=== PATIENT | male | born 1960 | race Caucasian/White ===

== ENCOUNTER 2021-02-22 08:05 | Outpatient (CLI) | payer OTHER, SELFPAY | END 2021-02-22 08:06 | PROVIDERS: PCP Family Medicine | DX: Z23 Encounter for immunization (principal) | CPT/HCPCS: 0001A; 91300 ==

== ENCOUNTER 2021-03-15 08:01 | Outpatient (CLI) | payer OTHER, SELFPAY | END 2021-03-15 08:02 | disposition home or self-care (01) | LOC: ANHCOVIDVC 08:01 | PROVIDERS: PCP Family Medicine | DX: Z23 Encounter for immunization (principal) | CPT/HCPCS: 0002A; 91300 ==

== ENCOUNTER 2023-09-05 18:30 | Emergency (ER) | payer OTHER, SELFPAY ==
[2023-09-05 18:38] VITALS: BP 175/97; PULSE 66; RESP 18; TEMP 36.7; O2SAT 98
--- NOTE | 2023-09-05 18:44 | ED.MALEGU ---
HPI - Male Genitourinary General Chief complaint: Urogenital-Male Stated complaint: Male Urogenital Time Seen by Provider: 09/05/23 18:44 Source: patient, RN notes reviewed and old records reviewed Mode of arrival: ambulatory Limitations: no limitations History of Present Illness HPI Narrative: 63 year old male presents to express care accompanied by with complaints of urinary burning, urgency, frequency of urination and also some minimal lower abdominal pain since yesterday. Patient reports that he has taken Tylenol for his discomfort. Patient has had 2 previous procedures to removal scar tissue from urinary tract and did see a urologist for evaluation of rnal cysts in the past but has not followed with him since early 2018. Patient no longer states that he takes any blood pressure medication since he retired does cardio workout a fes times weekly, blood pressure today 175/97. Complaint: dysuria Onset (ago): day(s) (since yesterday, day 2 of symptoms.) Duration: constant Location: abdomen (lower abdomen) Severity scale (1-10): 2 Associated symptoms: Reports dysuria and other (urgency frequency, minimal lower abdominal pain.) Related Data Allergies Allergy/AdvReac Type Severity Reaction Status Date / Time No Known Allergies Allergy Verified 09/05/23 18:49 Review of Systems Review of Systems: CONSTITUTIONAL: Denies fever, chills, or sweats. CARDIOVASCULAR: Denies chest pain, palpitations, or edema. RESPIRATORY: Denies cough or dyspnea. GASTROINTESTINAL: mild suprapubic abdominal pain,no nausea, vomiting, or diarrhea. GENITOURINARY: Reports dysuria, frequency, urgency. Denies flank pain or hematuria. SKIN: Denies rash or itching. MUSCULOSKELETAL: Denies back pain or myalgia. Denies CVA tenderness NEUROLOGIC: Denies headache All systems reviewed & are unremarkable except as noted in HPI and below PMFSH Past Medical History Medical History Hypertension Renal cyst Surgical History Surgical History History of urinary tract surgery X2 to remove scar tissue. Social History Social History Smoking status: Never smoker Alcohol intake: current Substance use type: does not use Living arrangements: with family Occupation/Education: retired Gender identity (if verbalized by the patient): Male Comments At time of signature, agree with nursing past medical, surgical, social and family history. There is no relevant family history pertinent to the presenting complaint Exam Narrative: GENERAL: Well-appearing, well-nourished, and in no acute distress. HEAD: Normocephalic, atraumatic. NECK: Supple. no lymphadenopathy CHEST: Clear to auscultation. No respiratory distress.SAO2 98% on room air HEART: Regular rate and rhythm. No murmur heard. Normal peripheral pulses. ABDOMEN: Soft, mild suprapubic tenderness, nondistended, normal active bowel sounds. No CVA tenderness, Positive for burning with urination with urgency and frequency denies any visible blood in urine. EXTREMITIES: Normal range of motion. No edema. SKIN: Warm, dry, no rash. NEURO: No focal deficits. Alert and oriented x3. Course Course Emergency Course: Patient is aware of diagnosis, understands and agrees to treatment plan.? Anticipatory guidance given.? Patient agrees to follow-up as directed and is aware of reasons to seek care at the emergency department. Portions of this record may have been created with voice recognition software Level of Care: Express Care Visit Vital Signs Vital signs: Vital Signs Oxygen Delivery Room Air 09/05/23 18:37 Temperature 36.7 C 09/05/23 18:38 Pulse Rate 66 09/05/23 18:38 Respiratory Rate 18 09/05/23 18:38 Blood Pressure 175/97 H 09/05/23 18:38 Pulse Oximetry 98 09/05/23 18:38 Oxygen Delivery Room Air 09/05/23
== END 2023-09-05 19:08 | disposition home or self-care (01) ==
PROVIDERS: Emergency Provider Registered Nurse; PCP Family Medicine
DX: N39.0 Urinary tract infection, site not specified (principal); B95.1 Streptococcus, group B, as the cause of diseases classified elsewhere; I10 Essential (primary) hypertension
CPT/HCPCS: 81003; 87077; 87086; 87088; 99213; G0463

== ENCOUNTER 2023-09-25 07:02 | Outpatient (CLI) | payer OTHER, SELFPAY ==
--- NOTE | ~2023-09-25 | CT_ITS ---
CT of the Abdomen: Indication: Renal mass Technique: 2.5 mm axial scans were obtained through the abdomen prior to and following intravenous a dministration of 100 cc of Omnipaque 350. Dose reduction technique was used on this scan by utilizing automated exposure control and iterative reconstruction technique. The dose-length product (DLP) was 556.11 mGy-cm. COMPARISON: Prior MRI dated 01/05/2019 Findings: Scans through the lung bases are unremarkable. The liver, spleen, pancreas, gallbladder, and adrenal glands are within normal limits. Bilateral kaley gn renal cysts are present. No suspicious renal mass identified. No evidence of aortic aneurysm. No lymphadenopathy. Visualized bowel loops are unremarkable. No ascites. Impression: Bilateral benign renal cysts. No suspicious abnormality seen. Reviewed, dictated and finalized at location . SS LIAISON Impression: Bilateral benign renal cysts. No suspicious abnormality seen.
[2023-09-25 07:31] LABS: Estimated Glomerular Filt Rate > 60
== END 2023-09-25 07:03 | disposition home or self-care (01) ==
PROVIDERS: PCP Family Medicine; Visit Provider Urology
DX: N28.89 Other specified disorders of kidney and ureter (principal); N28.1 Cyst of kidney, acquired
CPT/HCPCS: 74170; Q9967

== ENCOUNTER 2023-11-23 15:17 | Emergency (ER) | payer OTHER, SELFPAY ==
[2023-11-23] VITALS (10 sets, daily range): BP systolic 130–142; BP diastolic 76–89; PULSE 88–120; RESP 10–22; TEMP 37.7–38.7; O2SAT 95–99
--- NOTE | ~2023-11-23 | CT_ITS ---
EXAMINATION: CT abdomen pelvis w con DATE: 11/23/2023 20:43 INDICATION: RLQ tenderness, febrile TECHNIQUE: Computed tomography (CT) of the abdomen and pelvis was performed with 100 mL Omnipaque-350 intravenous contrast. Automated exposure control and iterative reconstruction technique were employe d. The dose-length product was 556.43 mGy-cm. COMPARISON: CT abdomen 09/25/2023; MR abdomen 01/05/2019; CT abdomen pelvis 08/01/2018. FINDINGS: Lower thorax: Dependent scar/atelectasis. Liver: Multiple subcentimeter hypodensities that likely represent cysts or hemangiomas. Mildly enlarg ed. Biliary/Gallbladder: Gallbladder is normal. No bile duct dilation. Pancreas: No mass or duct dilation. Spleen: Mildly enlarged. Adrenals:No mass. Kidneys: Urothelial enhancement bilaterally. Indeterminate density right mid and lower pole lesions p reviously determined to be hemorrhagic/proteinaceous cysts. Multiple left kidney cysts. GI tract: No small or large bowel dilation. Normal appendix. Diverticulosis without diverticulitis. Mesentery/Peritoneum: No ascites, mass, or free air. Retroperitoneum: No mass. Pelvis: Marked bladder wall thickening. Stranding in the pelvic fat at the inferior bladder and surro unding the seminal vesicles. Soft Tissues: Soft tissues and body wall unremarkable. Bones: No acute osseous finding. IMPRESSION: Mild hepatosplenomegaly. Likely cystitis, with ascending infection/pyelitis. Possible seminal vesiculitis. Reviewed, dictated and finalized at location K. COPER IMPRESSION: Mild hepatosplenomegaly. Likely cystitis, with ascending infection/pyelitis. Possible seminal vesiculiti s.
--- NOTE | ~2023-11-23 | XR_ITS ---
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 RESULT: Lines, tubes, and devices: None. Lungs and pleura: Clear. Cardiomediastinal silhouette: Stable. Other: No acute osseous or upper abdominal finding. IMPRESSION: No acute cardiopulmonary process. Reviewed, dictated and finalized at location K. K SAFETY INSPECTOR
--- NOTE | 2023-11-23 18:38 | ED.FEVER ---
HPI - Fever General Chief Complaint: Fever <CAMRYN Iyer Last Filed: 11/23/23 18:48> Stated Complaint: fever <CAMRYN Iyer Last Filed: 11/23/23 18:48> Time Seen by Provider: 11/23/23 18:38 <CAMRYN Iyer Last Filed: 11/23/23 18:48> Focused HPI: 63 y/o M reports for evaluation for intermittent fevers x3 days. Pt states 3 days ago, he began shivering, took his temperature and it was 102.9. Pt reports a headache and loose stools. On 11/13 he had urethral for a urethral stricture. He had a catheter placed post op and had it removed on 11/19 without complications. His urologist is Dr. Beasley who was contacted by the patient who did not feel patient's symptoms were related to recent surgery. Pt has been taking Tylenol with improvement. Denies sore throat, nasal congestion, cough, chest pain, shortness of breath, abdominal pain, dysuria, hematuria, urinary frequency or urgency, nuchal rigidity , rashes , hematochezia, melena. GENERAL: Well-appearing, well-nourished, and in no acute distress. HEAD: Normocephalic, atraumatic. CHEST: Clear to auscultation. ?No respiratory distress. HEART: Regular rate and rhythm.? NEURO: ?Alert and oriented x3. Patient screened in triage and initial orders placed.? ?Additional care and disposition to be based upon?diagnostic testing and treatment. <CAMRYN Iyer Last Filed: 11/23/23 18:48> Source: patient <CAMRYN Pino Last Filed: 11/24/23 02:50> Mode of arrival: ambulatory <CAMRYN Pino Last Filed: 11/24/23 02:50> Limitations: no limitations <CAMRYN Pino Last Filed: 11/24/23 02:50> History of Present Illness HPI Narrative: This is a 63 year old male who presents to the ED with chief complaint of fever for the past several days. Reports feeling generally malaised and has some loose stools. Denies significant diarrhea. He also reporting some nausea today but no vomiting. He has recent urethral balloon procedure done a couple weeks ago by his urologist Dr. Beasley, but they did not feel this fever was related to the procedure. Patient denies any penile or testicular pain or swelling. Denies hematuria, dysuria, abdominal pains, chest pain, shortness of breath, cough, sore throat. Endorses mild headache but no neck pain or stiffness. Having trouble keeping the fever down with Tylenol. <Angelito Ferguson PA-C - Last Filed: 11/24/23 02:50> Related Data Allergies/Adverse Reactions: Allergies Allergy/AdvReac Type Severity Reaction Status Date / Time No Known Allergies Allergy Verified 09/05/23 18:49 <Kendy Burks PA-C - Last Filed: 11/23/23 18:48> Review of Systems Review of Systems: All systems as dictated in HPI <CAMRYN Pino Last Filed: 11/24/23 02:50> PMFSH Past Medical History Medical History: Medical History Hypertension Renal cyst <Kendy Burks PA-C - Last Filed: 11/23/23 18:48> Surgical History Surgical History: Surgical History History of urinary tract surgery X2 to remove scar tissue. <Kendy Burks PA-C - Last Filed: 11/23/23 18:48> Social History Social History: Social History Smoking status: Never smoker Alcohol intake: current Substance use type: does not use Living arrangements: with family Occupation/Education: retired Gender identity (if verbalized by the patient): Male <Kendy Burks PA-C - Last Filed: 11/23/23 18:48> Exam Narrative: GENERAL: Well-appearing, well-nourished, and in no acute distress. HEAD: Normocephalic, atraumatic. EYES: PERRLA and EOMI. ENT: Nares clear, no rhinorrhea or epistaxis. Mucous membranes moist. Oropharynx without tonsillar hypertrophy exudate or other lesions. NECK: Supple. No adenopa
--- NOTE | 2023-11-23 18:47 | ECG_ITS ---
Measurements Intervals [place] Rate: 99 P: 55 MA: 135 QRS: 45 QRSD: 96 T: 41 QT: 308 QTc: 396 Interpretive Statements SINUS RHYTHM POSSIBLE LEFT ATRIAL ENLARGEMENT BORDERLINE ECG NO PREVIOUS ECG AVAILABLE FOR COMPARISON Electronically Signed On 11-23-2023 19:33:40 PHONE TRIAGE SPECIALIST by Yandel Hernandez D.O.
[2023-11-23 19:03] LABS: Basophils Absolute Auto 0.1 K/mm3 (0.0-0.1); Basophils Percent Auto 0.6 % (0.2-1.2); Eosinophils Percent Auto 0.1 % (0-4.4); Hematocrit 40.3 % (42.0-52.0); Hemoglobin 13.4 g/dL (14.0-18.0); Immature Granulocyte Absolute 0.05 K/mm3 (0.00-0.031); Immature Granulocyte Percent A 0.5 % (0-0.5); Lymphocytes Absolute Auto 0.71 K/mm3 (0.9-3.2); Lymphocytes Percent Auto 7.6 % (18.3-44.2); Mean Corpuscular HGB Conc 33.3 g/dl (32-36); Mean Corpuscular Hemoglobin 30.6 pg (26-34); Monocytes Absolute Auto 0.7 K/mm3 (0.1-0.6); Neutrophils Absolute Auto 7.9 K/mm3 (1.3-6.7); Neutrophils Percent Auto 84.2 % (45.5-73.1); Platelet Count Result 221 k/mm3 (150-375); Red Blood Count 4.38 M/mm3 (4.6-6.20); Red Cell Distribution Width 11.7 % (11.5-14.5); White Blood Count 9.4 K/mm3 (4.5-10.0)
[2023-11-23 19:12] LABS: Lactic Acid Reflex 1.3 mmol/L (0.7-2.0)
[2023-11-23 19:13] LABS: Alanine Aminotransferase 41 U/L (6-50); Alkaline Phosphatase 91 U/L (38-126); Anion Gap 7 mmol/L (8-16); Aspartate Amino Transferase 33 U/L (17-59); Bilirubin,Total 1.2 mg/dL (0.2-1.3); Blood Urea Nitrogen 11 mg/dL (9-20); Calcium 9.2 mg/dL (8.4-10.2); Carbon Dioxide 27 mmol/L (22-30); Chloride 102 mmol/L (98-107); Estimated CRCL calculation 101 ml/min; Estimated Glomerular Filt Rate > 60; Glucose 135 mg/dL (65-110); Potassium 4.3 mmol/L (3.4-5.0); Sodium 136 mmol/L (137-145)
[2023-11-23 19:40] LABS: Influenza A QL RT-PCR Negative (Negative); Influenza B QL RT-PCR Negative (Negative); RSV RNA, RT-PCR Negative (Negative); SARS-CoV-2 RNA PCR Negative (Negative)
--- NOTE | 2023-11-23 20:12 | PC.NURSE ---
PA-C verbal order d/c acetaminophen PO due to pt being NPO at this time. this rn used closed loop communication to confirm d/c of acetaminophen.
[2023-11-23 20:17] LABS: Appearance Urine Cloudy (Clear); Bacteria Urine 4+ /hpf; Bilirubin Urine Negative (Negative); Blood Urine Negative (Negative); Color Urine Dark Yellow (Yellow); Glucose Urine UA Negative (Negative); Ketones Urine Trace mg/dL (Negative); Leukocyte Esterase Ur 2+ LEU/UL (Negative); Nitrate Urine Positive (Negative); Non Pathogenic Casts 0-2; Protein Urine 1+ mg/dL (Negative); RBC Urine 0-2 /hpf (0-2); Specific Grav Ur 1.021 (1.001-1.035); Squamous Epithelial Cell Urine None seen /hpf (Few); WBC Urine >100 /hpf; pH Urine 7.5 (5.0-9.0)
[2023-11-23 20:21] LABS: Add Urine Microscopic? YES
[2023-11-23] MEDS: SODIUM CHLORIDE 0.9% IV 1,000 ML 999 ML IV CONT (20:29)
[2023-11-23] MEDS: KETOROLAC 15 MG/ML VIAL (*BKC) IV PUSH (20:30)
[2023-11-23 21:09] LABS: CRP 13.7 mg/dL (<1.0)
== END 2023-11-23 22:26 | disposition home or self-care (01) ==
PROVIDERS: Physician Assistant; Emergency Provider Physician Assistant; PCP Family Medicine
DX: N10 Acute pyelonephritis (principal); Z20.822 Contact with and (suspected) exposure to COVID-19; I10 Essential (primary) hypertension; R94.31 Abnormal electrocardiogram [ECG] [EKG]; R16.2 Hepatomegaly with splenomegaly, not elsewhere classified
CPT/HCPCS: 36415; 71046; 74177; 80053; 81001; 83605; 85025; 86140; 87040; 87077; 87086; 87186; 87637; 93005; 96361; 96365; 96375; 99284; J0696; J1885; J7030; Q9967

== ENCOUNTER 2024-03-16 09:00 | Outpatient (CLI) | payer OTHER, SELFPAY ==
[2024-03-16 13:21] LABS: Eosinophils Absolute Auto 0.1 K/mm3 (0-0.3); Eosinophils Percent Auto 1.9 % (0-4.4); Hematocrit 42.7 % (42.0-52.0); Hemoglobin 14.2 g/dL (14.0-18.0); Immature Granulocyte Absolute 0.02 K/mm3 (0.00-0.031); Immature Granulocyte Percent A 0.5 % (0-0.5); Lymphocytes Absolute Auto 1.48 K/mm3 (0.9-3.2); Lymphocytes Percent Auto 35.2 % (18.3-44.2); Mean Corpuscular HGB Conc 33.3 g/dl (32-36); Mean Corpuscular Hemoglobin 30.9 pg (26-34); Mean Corpuscular Volume 92.8 fl (80-100); Mean Platelet Volume 12.7 fl (7.4-10.4); Monocytes Absolute Auto 0.3 K/mm3 (0.1-0.6); Monocytes Percent Auto 6.9 % (2.6-8.5); Neutrophils Absolute Auto 2.3 K/mm3 (1.3-6.7); Neutrophils Percent Auto 54.5 % (45.5-73.1); Platelet Count Result 208 k/mm3 (150-375); Red Cell Distribution Width 12.3 % (11.5-14.5); White Blood Count 4.2 K/mm3 (4.5-10.0)
[2024-03-16 13:35] LABS: Alanine Aminotransferase 18 U/L (6-50); Albumin Level 4.3 g/dL (3.5-5.1); Alkaline Phosphatase 78 U/L (38-126); Anion Gap 5 mmol/L (4-12); Aspartate Amino Transferase 43 U/L (17-59); Bilirubin,Total 1.4 mg/dL (0.2-1.3); Blood Urea Nitrogen 17 mg/dL (9-20); Calcium 9.1 mg/dL (8.4-10.2); Carbon Dioxide 26 mmol/L (22-30); Chloride 107 mmol/L (98-107); Cholesterol 180 mg/dL (0-200); Estimated Glomerular Filt Rate > 60; Glucose 103 mg/dL (65-110); HDL Direct 50 mg/dL; Potassium 4.3 mmol/L (3.4-5.0); Sodium 138 mmol/L (137-145); Triglycerides 80 mg/dL (<150)
[2024-03-16 13:45] LABS: Vitamin D 25 Hydroxy 48.8 ng/mL
[2024-03-16 13:46] LABS: LDL Cholesterol Direct 102 mg/dL
[2024-03-16 14:05] LABS: Prostate Specific Antigen 2.2 ng/mL (< OR = 4.0)
[2024-03-20 12:08] LABS: Testosterone Free 43.1 pg/mL (35.0-155.0); Testosterone Total 454 ng/dL (250-1100)
== END 2024-03-16 09:01 | disposition home or self-care (01) ==
LOC: ANHGOSHLAB 09:02
PROVIDERS: PCP Family Medicine; Visit Provider Family Medicine
DX: Z12.5 Encounter for screening for malignant neoplasm of prostate (principal); I10 Essential (primary) hypertension; R68.82 Decreased libido; E55.9 Vitamin D deficiency, unspecified; Z13.220 Encounter for screening for lipoid disorders
CPT/HCPCS: 36415; 80053; 80061; 82306; 84153; 84402; 84403; 84443; 85025; G0103

== ENCOUNTER 2024-04-02 09:24 | Day surgery (SDC) | payer OTHER, SELFPAY ==
[2024-03-16 11:03] VITALS: BMI 25.7
[2024-03-24 12:46] VITALS: BMI 25.6
[2024-04-02 10:21] VITALS: BP 121/80; PULSE 60; RESP 18; TEMP 36.9; O2SAT 99; BMI 25.2
--- NOTE | 2024-04-02 10:32 | P.PNAN_ITS ---
Anes - Initial Pre Proc Eval Procedure: Operation Date: 04/02/24 11:00 Proposed Procedures p Screening Colonoscopy - Travis Diaz MD Date/Time: 04/02/24 10:32 Surgeon: Travis Diaz MD Pre Op Diagnosis: Neoplasm Screening Patient Data Age: 63 Gender: M Height: 1.91 m Weight: 91.6 kg Last Vital Signs Temp 36.9 C 04/02/24 10:21 Pulse 60 04/02/24 10:21 Resp 18 04/02/24 10:21 BP 121/80 04/02/24 10:21 Pulse Ox 99 04/02/24 10:21 O2 Del Method Room Air 04/02/24 10:21 Allergies Allergy/AdvReac Type Severity Reaction Status Date / Time No Known Allergies Allergy Verified 04/02/24 10:18 Home Medications Medication Instructions Recorded Confirmed Type cetirizine 10 mg capsule (Zyrtec) 10 mg PO DAILY 03/12/24 04/02/24 History cholecalciferol (vitamin D3) 25 25 mcg PO DAILY 03/12/24 04/02/24 History mcg (1,000 unit) capsule zsfurlze-cr-hqjje 300 mcg-K 60 1 tablet PO DAILY 03/12/24 04/02/24 History mcg-lycop 600 mcg-lutein 300 mcg tablet (Centrum Silver Ultra Men's) omega-3 fatty acids-vitamin E 1 cap PO DAILY 03/24/24 04/02/24 History 1,000 mg capsule Patient hx anesthesia problems: none Family hx anesthesia problems: none Results Review: All pre-operative results and documents have been reviewed as part of the pre- operative evaluation. [facility] Past Medical History Medical History Decreased libido Hypertension Renal cyst Surgical History Surgical History History of urinary tract surgery X2 to remove scar tissue. Social History Social History Smoking status: Former smoker Smokeless tobacco user: chewing tobacco Alcohol intake: current Drinks per week: 1 Substance use type: does not use Do You Feel Safe in your Home?: Yes Lack of Transportation: No Lack of Food: Never True Current Housing: I Have Housing Concerned About Future Housing: No Difficulty Paying Gas/Electric Bills: No Difficulty Paying for Meds: No Currently Unemployed: No Difficulty w/ Childcare or Family Care: No Living arrangements: with family Occupation/Education: retired Gender identity (if verbalized by the patient): Male Spiritual care concerns: No Anes - Eval Final PreProcedure Day of Procedure 04/02/24 10:32 Patient weight: normal Heart: regular rate and rhythm Lungs: clear to auscultation Airway: Mallampati scale class II Neurological: alert and oriented Last oral intake: >/= 8 hours ASA classification: II Emergent: no Anesthetic plan: proceed Anesthesia type and monitoring: general GIVS and standard monitoring Results Review: All pre-operative results and documents have been reviewed as part of the pre- operative evaluation. Informed Consent: The patient's anesthetic plan and its attendant risks and benefits were discus sed with the patient/family/POA. Questions were solicited and answers provided to the satisfaction of the patient/family/POA.
[2024-04-02] MEDS: LACTATED RINGERS 1,000 ML 150 ML IV CONT (10:36)
--- NOTE | 2024-04-02 10:49 | PM.HPGS ---
History of Present Illness History of Present Illness Consent: Risks, benefits, and alternatives have been discussed and questions answered. Patient agrees to proceed with procedure. Chief complaint: Neoplasm Screening Narrative: Mario Alberto Olea is a 63 year old male presents for screening colonoscopy. Patient's current weight appetite and bowel movements are normal. Patient denies abdominal pain. He has had no bleeding. Family history noncontributory. He does have a history of a benign hyperplastic colon polyp 9 or 10 years ago. Review of Systems Review of Systems: All systems reviewed & are unremarkable except as noted in HPI and below PMFSH Past Medical History Medical History Decreased libido Hypertension Renal cyst Surgical History Surgical History History of urinary tract surgery X2 to remove scar tissue. Social History Social History Smoking status: Former smoker Smokeless tobacco user: chewing tobacco Alcohol intake: current Drinks per week: 1 Substance use type: does not use Do You Feel Safe in your Home?: Yes Lack of Transportation: No Lack of Food: Never True Current Housing: I Have Housing Concerned About Future Housing: No Difficulty Paying Gas/Electric Bills: No Difficulty Paying for Meds: No Currently Unemployed: No Difficulty w/ Childcare or Family Care: No Living arrangements: with family Occupation/Education: retired Gender identity (if verbalized by the patient): Male Spiritual care concerns: No Meds Home Medications and Allergies Home Medications Medication Instructions Recorded Confirmed Type cetirizine 10 mg capsule (Zyrtec) 10 mg PO DAILY 03/12/24 04/02/24 History cholecalciferol (vitamin D3) 25 25 mcg PO DAILY 03/12/24 04/02/24 History mcg (1,000 unit) capsule mrkdqnik-ah-llmqe 300 mcg-K 60 1 tablet PO DAILY 03/12/24 04/02/24 History mcg-lycop 600 mcg-lutein 300 mcg tablet (Centrum Silver Ultra Men's) omega-3 fatty acids-vitamin E 1 cap PO DAILY 03/24/24 04/02/24 History 1,000 mg capsule Allergies Allergy/AdvReac Type Severity Reaction Status Date / Time No Known Allergies Allergy Verified 04/02/24 10:18 Vital Signs Vital Signs - 24 hr 04/02/24 10:21 Temperature 98.4 F Pulse Rate 60 Respiratory Rate 18 Blood Pressure 121/80 Pulse Oximetry 99 Oxygen Delivery Room Air Exam Narrative: Physical exam reveals patient to be alert. Signs stable. H EENT exam is unremarkable. Patient is anicteric. Lungs are clear to auscultation and percussion. Heart is without murmur or extra sounds. Abdomen bowel sounds are present soft nontender with no hepatosplenomegaly. Digital external rectal exam normal. Assessment and Plan Assessment and plan (1) Screen for colon cancer: Code(s): Z12.11 - Encounter for screening for malignant neoplasm of colon Status: Acute Assessment and Plan: Patient presents today for screening colonoscopy. Further recommendations may be given after endoscopy. He appears to be at average risk for colon polyps.
[2024-04-02 11:48] VITALS: BP 106/73; PULSE 70; RESP 14; O2SAT 97
[2024-04-02 11:58] VITALS: BP 112/76; PULSE 66; RESP 16; O2SAT 97
[2024-04-02 12:08] VITALS: BP 124/83; PULSE 57; RESP 20; O2SAT 100
--- NOTE | 2024-04-02 12:18 | WPDANESPN ---
Anes - Prog Note Post-Op Date/Time: 04/02/24 12:18 Cardiovascular status: normal Respiratory status: normal Airway patency: baseline Mental status: baseline Post-Op hydration status: normal Vital Signs: Last Vital Signs Temp 36.9 C 04/02/24 10:21 Pulse 57 L 04/02/24 12:08 Resp 20 04/02/24 12:08 BP 124/83 04/02/24 12:08 Pulse Ox 100 04/02/24 12:08 O2 Del Method Room Air 04/02/24 12:08 Pain Score (VAS): 0 I/O: Intake & Output 04/01/24 04/02/24 04/02/24 23:59 07:59 15:59 Intake Total 800 Balance 800 Patient Feedback: Patient satisfied with anesthetic care.
== END 2024-04-02 12:17 | disposition home or self-care (01) ==
PROVIDERS: PCP Family Medicine; Visit Provider Internal Medicine Gastroenterology
PROC: 0DJD8ZZ Inspection of Lower Intestinal Tract, Via Natural or Artificial Opening Endoscopic (ICD-10-PCS; CPT 45378; principal; 2024-04-02 11:00)
DX: Z12.11 Encounter for screening for malignant neoplasm of colon (principal); K57.30 Diverticulosis of large intestine without perforation or abscess without bleeding; K64.8 Other hemorrhoids
CPT/HCPCS: 45378

== ENCOUNTER 2024-05-27 09:49 | Outpatient (CLI) | payer OTHER, SELFPAY ==
--- NOTE | ~2024-05-27 | XR_ITS ---
Right Knee Technique: AP, lateral, and sunrise views were obtained. Clinical History: Pain Findings: No fracture or dislocation is seen. Osseous alignment is anatomic. Mild tricompartmental de generative spurring present. Soft tissues are unremarkable. No joint effusion is seen. Impression: Mild tricompartmental degenerative spurring. Reviewed, dictated and finalized at location . Impression: Mild tricompartmental degenerative spurring.
== END 2024-05-27 09:50 | disposition home or self-care (01) ==
LOC: ANHIMG 09:51
PROVIDERS: PCP Family Medicine
DX: M25.761 Osteophyte, right knee (principal)
CPT/HCPCS: 73564